=== PATIENT | female | born 1980 | race Caucasian/White ===

== ENCOUNTER 2022-07-10 13:54 | Outpatient (CLI) | payer OTHER, SELFPAY ==
--- NOTE | ~2022-07-10 | XR_ITS ---
EXAM: XR foot LT min 3V DATE: 07/10/2022 14:15 HISTORY: INJURY OF LEFT FOOT, LATERAL SWELLING, BRUISING . COMPARISON: None available. FINDINGS: Normal mineralization. Mildly displaced, oblique, intra-articular fracture of the proximal aspect of the fifth proximal phalange. No lytic or blastic lesion. Joint spaces are maintained. Prom inent os navicularis. Plantar enthesopathy. No erosion or periosteal change. Soft tissues within norm al limits. IMPRESSION: Mildly displaced oblique intra-articular fracture of the proximal aspect of the left fift h proximal phalange. Prominent os navicularis, which can be a source of chronic medial ankle/foot chad n in some individuals. Reviewed, dictated and finalized at location K. IMPRESSION: Mildly displaced oblique intra-articular fracture of the proximal a spect of the left fifth proximal phalange. Prominent os navicularis, which can be a source of chronic medial ankle/foot pain in some individuals.
== END 2022-07-10 13:55 | disposition home or self-care (01) ==
LOC: ANHIMG 14:02
PROVIDERS: PCP Internal Medicine; Visit Provider Internal Medicine
DX: S92.512A Displaced fracture of proximal phalanx of left lesser toe(s), initial encounter for closed fracture (principal); X58.XXXA Exposure to other specified factors, initial encounter
CPT/HCPCS: 73630

== ENCOUNTER 2022-09-24 01:25 | Day surgery (SDC) | payer OTHER, SELFPAY ==
[2022-09-12 09:21] VITALS: BMI 40.4
--- NOTE | 2022-09-12 09:30 | PC.NURSE ---
Report to the Outpatient Waiting Room, entrance under the green pavilion located off [facility], at time _0615_ on date _[id number]_. Planned Procedure Time: _0815_. Time changes happen often and if your time is changed the preop area will call you the afternoon before. - You and your visitor will be asked to self-screen and do not enter if you have any COVID symptoms. - Only one visitor is requested with a max of two and NO children visitors are allowed at this time. - The patient visitor may be requested to leave or wait in car when not with patient due to distancing restrictions. - A mask is optional within the hospital. Patients may have clear liquids (water, carbonated beverages, clear teas, apple juice) until 3 hours prior to surgery with a maximum of 20 ounces. - No food from midnight until time of surgery Take the following medications with a SIP of water the morning of surgery: __Synthroid and nasal spray. Medications to discontinue per physician ____Fish oil and biotin Date to take last mtxm___[id number] Please no make-up, nail hebrew, hairspray, perfume, deodorant, or body powder the day of surgery. No jewelry (including any body piercings) or valuables the day of surgery, leave them at home. Please take a shower or bath the night before, or the morning of, surgery with an antibacterial soap. Wear comfortable, loose fitting clothing. - Jewelry must be removed prior to entering the operating room. Rings and piercings that are not removed may be cut off. - The hospital will not accept responsibility for valuables. - Please leave all valuables, including medications, at home the day of surgery. If you are going home after surgery, a licensed hi lo driver must drive you home. - NO public transportation without another adult if you receive anesthesia. - We recommend that an adult stay with you for 24 hours following discharge. - We also recommend that you do not drive, make important decision, drink alcoholic beverages, or take any drugs that were not prescribed by your health care provider for at least 24 hours after your discharge time. Follow any additional instructions given to you from your surgeon. If you or anyone in your household have experienced Covid symptoms in the past week, please notify your surgeon or the nurse liaison at the phone number below for possible testing. Telephone instructions given to __Patient__and asked if any additional questions and then verbalized understanding. Patient advised to call surgeon office or pre surgery nurse liaison [phone] if any additional questions.
[2022-09-24] MEDS: LACTATED RINGERS 1,000 ML 30 ML IV CONT (06:45)
[2022-09-24] MEDS: ACETAMINOPHEN 500 MG TABLET 1000 MG PO (06:58)
[2022-09-24] MEDS: SCOPOLAMINE 1.5 MG PATCH TRANSDERM (07:00)
--- NOTE | 2022-09-24 07:09 | WPDANESEPPF ---
Anes - Initial Pre Proc Eval Procedure: Operation Date: 09/24/22 08:15 Proposed Procedures p Hysteroscopy, Dilation and Curettage, Myosure - Yessenia Vincent MD Date/Time: 09/24/22 07:09 Surgeon: Yessenia Vincent MD Pre Op Diagnosis: menorrhaghia, fibroids Patient Data Age: 42 Gender: F Height: 1.68 m Weight: 113.6 kg Allergies Allergy/AdvReac Type Severity Reaction Status Date / Time chlorhexidine Allergy Severe Hives Verified 09/12/22 09:15 Sulfa (Sulfonamide Allergy Severe Hives Verified 09/12/22 09:15 Antibiotics) vancomycin Allergy Severe Hives Verified 09/12/22 09:15 adhesive tape Allergy Intermediate Rash Verified 09/12/22 09:15 Home Medications Medication Instructions Recorded Confirmed Type azelastine-fluticasone 137 mcg-50 2 spray intranasal DAILY 09/12/22 09/12/22 History mcg/spray nasal spray biotin 500 mcg capsule 5 mg PO DAILY 09/12/22 09/12/22 History cetirizine 10 mg tablet (Zyrtec) 10 mg PO DAILY 09/12/22 09/12/22 History ferrous sulfate 325 mg (65 mg 325 mg PO DAILY 09/12/22 09/12/22 History iron) tablet levothyroxine 50 mcg tablet 50 mcg PO DAILY 09/12/22 09/12/22 History (Synthroid) montelukast 10 mg tablet 10 mg PO HS 09/12/22 09/12/22 History omega 5-bes-pnj-fish oil 300 1 cap PO DAILY 09/12/22 09/12/22 History mg-1,000 mg capsule (Fish Oil) sumatriptan succinate 50 mg tablet 50 mg PO DAILY PRN Migraine 09/12/22 09/12/22 History Headache Patient hx anesthesia problems: post op nausea/vomiting Family hx anesthesia problems: post op nausea/vomiting Results Review: All pre-operative results and documents have been reviewed as part of the pre-operative evaluation. [facility] Past Medical History Medical History (Updated 09/24/22 @ 07:10 by Gutierrez Modi MD) Asthma Hx of migraines Hypothyroid Seizure disorder Social History Social History Smoking packs per day: 0.5 Smoking cigarettes per day: 10.0 Years smoked: 10 Smoking pack-years: 5.00 Smoking status: Former smoker Tobacco type: cigarettes Smoking end date: 09/12/18 Living arrangements: with family Spiritual care concerns: No Anes - Eval Final PreProcedure Day of Procedure 09/24/22 07:09 Patient weight: morbidly obese Heart: regular rate and rhythm Lungs: clear to auscultation Airway: Mallampati scale class II Last oral intake: >/= 8 hours ASA classification: III Emergent: no Anesthetic plan: proceed Anesthesia type and monitoring: general GIVS and standard monitoring Results Review: All pre-operative results and documents have been reviewed as part of the pre-operative evaluation. Informed Consent: The patient's anesthetic plan and its attendant risks and benefits were discussed with the patient/family/POA. Questions were solicited and answers provided to the satisfaction of the patient/family/POA.
--- NOTE | 2022-09-24 07:13 | WPDHPUPDATE1 ---
History and Physical Update Update Date/Time: 09/24/22 07:13 History and Physical has been reviewed, including an updated exam of the patient. There are NO changes in the patient's condition. Risks, benefits, and alternatives have been discussed and questions answered. Patient agrees to proceed with procedure.
--- NOTE | 2022-09-24 07:13 | PM.HPGS ---
History of Present Illness History of Present Illness Consent: Risks, benefits, and alternatives have been discussed and questions answered. Patient agrees to proceed with procedure. Chief complaint: menorrhaghia, fibroids Narrative: Sonia Andino is a 42 year old female With menorrhagia and known fibroids prior ultrasound with Dr. Talbert. The patient had previous myomectomy with a doctor at [place]. In addition the patient had a prior D&C in 2019 with polyps found. Was recommended to proceed with D&C hysteroscopy to evaluate endometrium as it has been 3 years. Risks of infection, bleeding, and perforation were reviewed. Possible pathology was also discussed. If submucosal fibroids are found and removed was also discussed there could be fluid imbalance. Patient voiced understanding and agrees to proceed. Review of Systems Review of Systems: not repeated day of surgery; patient states no changes in status PMFSH Past Medical History Medical History (Updated 09/24/22 @ 07:19 by Yessenia Vincent MD) Asthma Deep vein thrombosis groin Hx of migraines Hypothyroid PCOS (polycystic ovarian syndrome) Seizure disorder Surgical History Surgical History (Updated 09/24/22 @ 07:17 by Yessenia Vincent MD) History of appendectomy History of History of hernia repair History of hysteroscopy [address] Singer polyp was found History of myomectomy History of right oophorectomy at the time of her appendectomy Social History Social History Smoking packs per day: 0.5 Smoking cigarettes per day: 10.0 Years smoked: 10 Smoking pack-years: 5.00 Smoking status: Former smoker Tobacco type: cigarettes Smoking end date: 09/12/18 Living arrangements: with family Spiritual care concerns: No Meds Home Medications and Allergies Home Medications Medication Instructions Recorded Confirmed Type azelastine-fluticasone 137 mcg-50 2 spray intranasal DAILY 09/12/22 09/12/22 History mcg/spray nasal spray biotin 500 mcg capsule 5 mg PO DAILY 09/12/22 09/12/22 History cetirizine 10 mg tablet (Zyrtec) 10 mg PO DAILY 09/12/22 09/12/22 History ferrous sulfate 325 mg (65 mg 325 mg PO DAILY 09/12/22 09/12/22 History iron) tablet levothyroxine 50 mcg tablet 50 mcg PO DAILY 09/12/22 09/12/22 History (Synthroid) montelukast 10 mg tablet 10 mg PO HS 09/12/22 09/12/22 History omega 4-rbb-lhf-fish oil 300 1 cap PO DAILY 09/12/22 09/12/22 History mg-1,000 mg capsule (Fish Oil) sumatriptan succinate 50 mg tablet 50 mg PO DAILY PRN Migraine 09/12/22 09/12/22 History Headache Allergies Allergy/AdvReac Type Severity Reaction Status Date / Time chlorhexidine Allergy Severe Hives Verified 09/12/22 09:15 Sulfa (Sulfonamide Allergy Severe Hives Verified 09/12/22 09:15 Antibiotics) vancomycin Allergy Severe Hives Verified 09/12/22 09:15 adhesive tape Allergy Intermediate Rash Verified 09/12/22 09:15 Exam Const: General: healthy appearing and alert Orientation/consciousness: patient oriented x3 Resp: Effort & Inspection: normal respiratory effort GI: GI Palp: Yes Soft to palpation, No Tenderness to palpation present (GI) and No Palpable mass present : External Female Exam: normal external appearance Speculum Exam - Vagina: normal appearance of the vagina and normal vaginal discharge Speculum Exam - Cervix: normal appearance of the cervix Bimanual exam- vagina & uterus: consistency normal and enlarged ( approximately 11 week size) Bimanual Exam- Adnexa, other: normal adnexae and No adnexal tenderness Neuro: General: patient oriented x3 Assessment and Plan Assessment and plan (1) Menorrhagia: Code(s): N92.0 - Excessive and frequent menstruation with regular cycle Status: Acute Assessment and Plan: The patient with prior polyp and known fibroids. Plan is to proceed with D&C hysteroscopy. If subm
[2022-09-24 07:19] LABS: Hematocrit 40.8 % (37.0-47.0); Hemoglobin 13.1 g/dL (12.0-15.0)
[2022-09-24 07:54] VITALS: BP 117/80; PULSE 86; RESP 16; TEMP 36.4; O2SAT 100
[2022-09-24] MEDS: LIDOCAINE HCL 1% PF 30 ML VIAL 10 ML INFILTRATE (07:54)
[2022-09-24 08:05] VITALS: BP 121/82; PULSE 89; RESP 16; O2SAT 100
--- NOTE | 2022-09-24 08:10 | W.PM.PROC2 ---
Procedure Note - Detailed Date of Procedure 09/24/22 Pre-op Diagnosis menorrhaghia, fibroids Post-op Diagnosis Same Procedure Performed D&C with hysteroscopy Surgeon Yessenia Vincent MD Anesthesia MAC and Local Findings uterus sounds to 11cm and appears grossly normal Description of Procedure the patient is taken to the operating room and placed under anesthesia in the dorsal lithotomy position. She was prepped and draped in the usual sterile fashion. [place] speculum was placed in the vagina and the cervix was grasped on the anterior lip with a tenaculum. The cervix is injected in each quadrant with 1% lidocaine. The uterus is sounded to 11cm. The diagnostic hysteroscope was placed. No abnormalities are noted so the hysteroscope was removed. The small sharp curette is used to curette the endometrium until a good uterine cry was noted in all areas. All instruments are removed and the patient was taken to recovery in stable condition. Sponge, needle, and instrument counts are correct per the OR staff Estimated Blood Loss -25.0 Drains No Packing No Pathology Yes ( endometrial curettings) Complications No immediate complications Condition Stable Disposition PACU
[2022-09-24] MEDS: KETOROLAC 30 MG/ML VIAL (*BKC) IV PUSH (08:34)
[2022-09-24 08:35] VITALS: BP 117/78; PULSE 79
[2022-09-24] MEDS: oxyCODONE HCL (*CRX) 5 MG TAB IR PO (09:01)
[2022-09-24 09:05] VITALS: BP 123/79; PULSE 73
[2022-09-24 09:20] VITALS: BP 131/84; PULSE 66
== END 2022-09-24 09:28 | disposition home or self-care (01) ==
PROVIDERS: Anesthesiology; PCP Internal Medicine; Visit Provider Obstetrics & Gynecology Gynecology
PROC: 0U5B8ZZ Destruction of Endometrium, Via Natural or Artificial Opening Endoscopic (ICD-10-PCS; CPT 58563; principal; 2022-09-24 08:15)
DX: N92.0 Excessive and frequent menstruation with regular cycle (principal); E28.2 Polycystic ovarian syndrome; J45.909 Unspecified asthma, uncomplicated; E03.9 Hypothyroidism, unspecified; Z87.891 Personal history of nicotine dependence; E66.01 Morbid (severe) obesity due to excess calories; Z68.41 Body mass index [BMI] 40.0-44.9, adult
CPT/HCPCS: 58558; 36415; 85014; 85018; 88305; A9270; J1100; J1885; J2250; J2405; J2704; J3010; J7030; J7120

== ENCOUNTER 2022-10-08 01:49 | Day surgery (SDC) | payer OTHER, SELFPAY ==
--- NOTE | 2022-09-26 11:23 | PC.NURSE ---
Report to the Outpatient Waiting Room, entrance under the green pavilion located off [facility], at time 0615 on date 10/08/22. Planned Procedure Time: 0815. Time changes happen often and if your time is changed the preop area will call you the afternoon before. - You and your visitor will be asked to self-screen and do not enter if you have any COVID symptoms. - Only one visitor is requested with a max of two and NO children visitors are allowed at this time. - The patient visitor may be requested to leave or wait in car when not with patient due to distancing restrictions. - A mask is optional within the hospital. Patients may have clear liquids (water, carbonated beverages, clear teas, apple juice) until 3 hours prior to surgery with a maximum of 20 ounces. - No food from midnight until time of surgery Take the following medications with a SIP of water the morning of surgery: LEVOTHYROXINE Medications to discontinue per physician: VITAMINS/SUPPLEMENTS Date to take last dose: 10/04/22 Please no make-up, nail danish, hairspray, perfume, deodorant, or body powder the day of surgery. No jewelry (including any body piercings) or valuables the day of surgery, leave them at home. Please take a shower or bath the night before, or the morning of, surgery with an antibacterial soap. Wear comfortable, loose fitting clothing. - Jewelry must be removed prior to entering the operating room. Rings and piercings that are not removed may be cut off. - The hospital will not accept responsibility for valuables. - Please leave all valuables, including medications, at home the day of surgery. If you are going home after surgery, a licensed dedicated intermodal truck driver must drive you home. - NO public transportation without another adult if you receive anesthesia. - We recommend that an adult stay with you for 24 hours following discharge. - We also recommend that you do not drive, make important decision, drink alcoholic beverages, or take any drugs that were not prescribed by your health care provider for at least 24 hours after your discharge time. Follow any additional instructions given to you from your surgeon. If you or anyone in your household have experienced Covid symptoms in the past week, please notify your surgeon or the nurse liaison at the phone number below for possible testing. Telephone instructions given to PT - PAVAN HENLEY and asked if any additional questions and then verbalized understanding. Patient advised to call surgeon office or pre surgery nurse liaison [phone] if any additional questions.
[2022-09-26 11:26] VITALS: BMI 40.4
[2022-10-08 06:32] VITALS: BP 106/83; PULSE 88; RESP 16; TEMP 36.2; O2SAT 99
[2022-10-08] MEDS: LACTATED RINGERS 1,000 ML 30 ML IV CONT (06:52)
[2022-10-08] MEDS: ACETAMINOPHEN 500 MG TABLET 1000 MG PO (06:53)
--- NOTE | 2022-10-08 07:20 | WPDHPUPDATE1 ---
History and Physical Update Update Date/Time: 10/08/22 07:20 History and Physical has been reviewed, including an updated exam of the patient. There are NO changes in the patient's condition. Risks, benefits, and alternatives have been discussed and questions answered. Patient agrees to proceed with procedure.
--- NOTE | 2022-10-08 07:20 | PM.HPGS ---
History of Present Illness History of Present Illness Consent: Risks, benefits, and alternatives have been discussed and questions answered. Patient agrees to proceed with procedure. Chief complaint: Menorrhagia, Fibroids Narrative: Sonia Andino is a 42 year old female with menorrhagia. Patient had a benign D&C in August. Patient has elected to proceed with Adelina endometrial ablation. Risks of infection, bleeding, perforation, and failure were reviewed. Postop expectations were reviewed. Patient is aware that an ablation is not control and plans to continue on planned for control. Review of Systems Review of Systems: not repeated day of surgery; patient states no changes in status [facility] Past Medical History Medical History (Updated 09/24/22 @ 07:19 by Yessenia Vincent MD) Asthma Deep vein thrombosis groin Hx of migraines Hypothyroid PCOS (polycystic ovarian syndrome) Seizure disorder Surgical History Surgical History (Updated 10/08/22 @ 07:24 by Yessenia Vincent MD) History of appendectomy History of History of hernia repair History of hysteroscopy [address] Singer polyp was found 2021 benign History of myomectomy History of right oophorectomy at the time of her appendectomy Social History Social History Smoking packs per day: 0.5 Smoking cigarettes per day: 10.0 Years smoked: 10 Smoking pack-years: 5.00 Smoking status: Former smoker Tobacco type: cigarettes Smoking end date: 09/12/18 Alcohol intake: never Substance use: never Substance use type: does not use Living arrangements: with family Spiritual care concerns: No Meds Home Medications and Allergies Home Medications Medication Instructions Recorded Confirmed Type azelastine-fluticasone 137 mcg-50 2 spray intranasal DAILY 09/12/22 10/08/22 History mcg/spray nasal spray biotin 500 mcg capsule 5 mg PO DAILY 09/12/22 10/08/22 History cetirizine 10 mg tablet (Zyrtec) 10 mg PO DAILY 09/12/22 10/08/22 History ferrous sulfate 325 mg (65 mg 325 mg PO DAILY 09/12/22 10/08/22 History iron) tablet levothyroxine 50 mcg tablet 50 mcg PO DAILY 09/12/22 10/08/22 History (Synthroid) montelukast 10 mg tablet 10 mg PO HS 09/12/22 10/08/22 History omega 4-bil-ezu-fish oil 300 1 cap PO DAILY 09/12/22 10/08/22 History mg-1,000 mg capsule (Fish Oil) sumatriptan succinate 50 mg tablet 50 mg PO DAILY PRN Migraine 09/12/22 10/08/22 History Headache Allergies Allergy/AdvReac Type Severity Reaction Status Date / Time chlorhexidine Allergy Severe Hives Verified 10/08/22 07:08 Sulfa (Sulfonamide Allergy Severe Hives Verified 10/08/22 07:08 Antibiotics) vancomycin Allergy Severe Hives Verified 10/08/22 07:08 adhesive tape Allergy Intermediate Rash Verified 10/08/22 07:08 Exam Narrative: BMI of 41 Const: General: healthy appearing and alert Orientation/consciousness: patient oriented x3 Resp: Effort & Inspection: normal respiratory effort GI: GI Palp: Yes Soft to palpation, No Tenderness to palpation present (GI) and No Palpable mass present : External Female Exam: normal external appearance Speculum Exam - Vagina: normal appearance of the vagina and normal vaginal discharge Speculum Exam - Cervix: normal appearance of the cervix Bimanual exam- vagina & uterus: uterine size normal and consistency normal Bimanual Exam- Adnexa, other: normal adnexae and No adnexal tenderness Neuro: General: patient oriented x3 Assessment and Plan Assessment and plan (1) Menorrhagia: Code(s): N92.0 - Excessive and frequent menstruation with regular cycle Status: Acute Assessment and Plan: plan to proceed with Adelina endometrial ablation
--- NOTE | 2022-10-08 07:39 | WPDANESEPPF ---
Anes - Initial Pre Proc Eval Procedure: Operation Date: 10/08/22 08:15 Proposed Procedures p Hysteroscopy with Adelina Endometrial Ablation - Yessenia Vincent MD Date/Time: 10/08/22 07:39 Surgeon: Yessenia Vincent MD Pre Op Diagnosis: Menorrhagia, Fibroids Patient Data Age: 42 Gender: F Height: 1.68 m Weight: 115.3 kg Last Vital Signs Temp 36.2 C L 10/08/22 06:32 Pulse 88 10/08/22 06:32 Resp 16 10/08/22 06:32 BP 106/83 10/08/22 06:32 Pulse Ox 99 10/08/22 06:32 O2 Del Method Room Air 10/08/22 06:32 Allergies Allergy/AdvReac Type Severity Reaction Status Date / Time chlorhexidine Allergy Severe Hives Verified 10/08/22 07:08 Sulfa (Sulfonamide Allergy Severe Hives Verified 10/08/22 07:08 Antibiotics) vancomycin Allergy Severe Hives Verified 10/08/22 07:08 adhesive tape Allergy Intermediate Rash Verified 10/08/22 07:08 Home Medications Medication Instructions Recorded Confirmed Type azelastine-fluticasone 137 mcg-50 2 spray intranasal DAILY 09/12/22 10/08/22 History mcg/spray nasal spray biotin 500 mcg capsule 5 mg PO DAILY 09/12/22 10/08/22 History cetirizine 10 mg tablet (Zyrtec) 10 mg PO DAILY 09/12/22 10/08/22 History ferrous sulfate 325 mg (65 mg 325 mg PO DAILY 09/12/22 10/08/22 History iron) tablet levothyroxine 50 mcg tablet 50 mcg PO DAILY 09/12/22 10/08/22 History (Synthroid) montelukast 10 mg tablet 10 mg PO HS 09/12/22 10/08/22 History omega 8-myx-xoi-fish oil 300 1 cap PO DAILY 09/12/22 10/08/22 History mg-1,000 mg capsule (Fish Oil) sumatriptan succinate 50 mg tablet 50 mg PO DAILY PRN Migraine 09/12/22 10/08/22 History Headache Patient hx anesthesia problems: none Family hx anesthesia problems: none Results Review: All pre-operative results and documents have been reviewed as part of the pre-operative evaluation. PMFSH Past Medical History Medical History (Updated 10/08/22 @ 07:39 by Francois Odonnell MD) Asthma Deep vein thrombosis groin Hx of migraines Hypothyroid Morbid obesity with BMI of 40.0-44.9, adult PCOS (polycystic ovarian syndrome) Seizure disorder Surgical History Surgical History (Updated 10/08/22 @ 07:24 by Yessenia Vincent MD) History of appendectomy History of History of hernia repair History of hysteroscopy [address] Singer polyp was found 2021 benign History of myomectomy History of right oophorectomy at the time of her appendectomy Social History Social History Smoking packs per day: 0.5 Smoking cigarettes per day: 10.0 Years smoked: 10 Smoking pack-years: 5.00 Smoking status: Former smoker Tobacco type: cigarettes Smoking end date: 09/12/18 Alcohol intake: never Substance use: never Substance use type: does not use Living arrangements: with family Spiritual care concerns: No Anes - Eval Final PreProcedure Day of Procedure 10/08/22 07:39 Patient weight: morbidly obese Heart: regular rate and rhythm Lungs: clear to auscultation Airway: Mallampati scale class II Last oral intake: >/= 8 hours ASA classification: III Emergent: no Anesthetic plan: proceed Anesthesia type and monitoring: general GIVS and LMA and standard monitoring Results Review: All pre-operative results and documents have been reviewed as part of the pre-operative evaluation. Informed Consent: The patient's anesthetic plan and its attendant risks and benefits were discussed with the patient/family/POA. Questions were solicited and answers provided to the satisfaction of the patient/family/POA.
[2022-10-08] MEDS: SCOPOLAMINE 1.5 MG PATCH TRANSDERM (07:55)
[2022-10-08] MEDS: ENOXAPARIN 40 MG/0.4 ML SYRINGE SUB-Q (07:56)
[2022-10-08] MEDS: LIDOCAINE HCL 1% PF 30 ML VIAL INFILTRATE (08:28)
--- NOTE | 2022-10-08 08:48 | W.PM.PROC2 ---
Procedure Note - Detailed Date of Procedure 10/08/22 Pre-op Diagnosis Menorrhagia, Fibroids Post-op Diagnosis Same Procedure Performed Hysteroscopy with Adelina endometrial ablation Surgeon Yessenia Vincent MD Anesthesia MAC and Local Findings uterus sounds to 11cm and appears grossly normal Description of Procedure The patient is taken to the operating room and placed under anesthesia in the dorsal lithotomy position. She was prepped and draped in the usual sterile fashion. The bivalve speculum was placed in the vagina and the cervix grasped on the anterior lip with a tenaculum. The cervix is injected in each quadrant with lidocaine. The uterus is sounded to 11cm. The cervix serially dilated with Hegar to a 6 . The Symphion scope was then placed with no abnormalities noted it is removed. The cervix is then dilated to an 8 Hegar. The Adelina device is opened and placed. Cavity assessment passed on the 1st attempt. The treatment cycle lasted the full 2minutes. The Symphion scope was replaced with good ablation effect noted. All instruments are removed. Sponge, needle, and instrument counts are correct per the OR staff. The patient was awakened from anesthesia and taken to recovery in stable condition. Estimated Blood Loss 5 Drains No Packing No Pathology None sent Complications No immediate complications Condition Stable Disposition PACU
[2022-10-08 08:51] VITALS: BP 123/85; PULSE 88; RESP 16; O2SAT 95
[2022-10-08 09:20] VITALS: BP 122/86; PULSE 77; RESP 16; O2SAT 97
[2022-10-08] MEDS: oxyCODONE HCL (*CRX) 5 MG TAB IR PO (09:30)
[2022-10-08 09:50] VITALS: BP 130/85; PULSE 81; RESP 16
== END 2022-10-08 09:58 | disposition home or self-care (01) ==
PROVIDERS: PCP Internal Medicine; Visit Provider Obstetrics & Gynecology Gynecology
PROC: 0U5B8ZZ Destruction of Endometrium, Via Natural or Artificial Opening Endoscopic (ICD-10-PCS; CPT 58563; principal; 2022-10-08 08:15)
DX: N92.0 Excessive and frequent menstruation with regular cycle (principal); E03.9 Hypothyroidism, unspecified; E28.2 Polycystic ovarian syndrome; E66.01 Morbid (severe) obesity due to excess calories; Z68.41 Body mass index [BMI] 40.0-44.9, adult; Z87.891 Personal history of nicotine dependence
CPT/HCPCS: 58563; A9270; J1650; J2250; J2704; J3010; J7030; J7120